=== PATIENT | male | born 1975 | race Hispanic/Latino ===

== ENCOUNTER 2022-09-06 18:50 | Emergency (ER) | payer OTHER, SELFPAY ==
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
[2022-09-06 19:32] VITALS: BP 153/101; PULSE 73; RESP 16; TEMP 36.9; O2SAT 100
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
== END 2022-09-06 23:22 | disposition home or self-care (01) ==
PROVIDERS: Emergency Provider Physician Assistant
DX: S46.912A Strain of unspecified muscle, fascia and tendon at shoulder and upper arm level, left arm, initial encounter (principal); S39.012A Strain of muscle, fascia and tendon of lower back, initial encounter; S09.90XA Unspecified injury of head, initial encounter; V49.40XA Driver injured in collision with unspecified motor vehicles in traffic accident, initial encounter
CPT/HCPCS: 70450; 72110; 72125; 73030; 99284